=== PATIENT | male | born 1950 | race Caucasian/White ===

== ENCOUNTER → 2018-09-24 | Outpatient (CLI) | payer BC ==
--- NOTE | 2018-09-24 17:25 | PCVCIMAG ---
APPROVED REPORT Study performed: 09/24/2018 10:40:32 Exam: Stress Echocardiogram Indication: Dyspnea, Elevated coronary calcium score Patient Location: Echo lab Stress Nurse: Betty Santoro RN Room #: 2 Status: routine Ht: 5 ft 10 in HR: 53 bpm BP: 132/82 mmHg Rhythm: NSR Medical History Medical History: HTN, Hyperlipidemia Cardiac Risk Factors: FHX of CAD, HTN, Hyperlipidemia Previous Cardiac Procedures: none Exercise History: Physically active Procedure The patient underwent an Exercise Stress Test using the Vidya Protocol. Blood pressure, heart rate, and EKG were monitored. An Echocardiogram was performed by cotton program technician in four stages in quad fashion. At peak stress, four selected images were obtained and placed side by side with resting images for comparison. Stress Test Details Stress Test: Exercise stress testing was performed using a Vidya protocol. HR Resting HR: 53 bpmMax Heart Rate (APMHR): 153 bpm Max HR Achieved: 148 bpmTarget HR (85% APMHR): 130 bpm % of APMHR: 96 Recovery HR: 74 bpm HR response to stress: Normal HR response to stress BP Resting BP: 132/82 mmHg Max BP: 210/86 mmHg Recovery BP: 174/80 mmHg BP response to stress: Normal blood pressure response to stress. ECG Resting ECG: Sinus Rhythm Stress ECG: Sinus Rhythm ST Change: Non-ischemic Maximum ST Deviation: -0.9 mm Arrhythmia: Occ PACs, Rare PVCs Recovery ECG: Sinus Rhythm Recovery ST Change: Non-ischemic Recovery ST Deviation: -.075 mm Recovery Arrhythmia: rare PACs Clinical Reason for Termination: Maximal effort Stress Symptoms: fatigue Exercise duration: 9 min 38 sec Highest Stage Achieved: Stage 4: 4.2 mph at 16% grade. Exercise capacity: 12.1 METs Overall Exercise Capacity for Age: Good Angina Score: None No complications. Stress ECG Conclusion The patient exercised according to the VIDYA protocol for 9:38 mins; achieving a work level of 12.1 METS. The resting heart rate of 53 bpm giovanna to a maximum heart rate of 148 bpm. This value represent 96% of the maximal, age-predicted heart rate. The resting blood pressure of 132/82 mmHg, giovanna to a maximum blood pressure of 210/86 mmHg. The exercise test was stopped due to fatigue . Griffith Treadmill Score is 13.5 which is Low risk. Pre-Stress Echo The resting Echocardiogram showed normal left ventricular contractility with an estimated Ejection Fraction of about 55-60%. Normal wall motion in all segments on baseline images. Post-Stress Echo The stress Echocardiogram showed normal left ventricular contractility with an estimated Ejection Fraction of about 65-70%. Normal augmentation of wall motion in all segments on post stress images. Clinical No clinical or ECG evidence for ischemia. Conclusion Clinical Response: Non-ischemic Exercise Capacity: Superior Stress ECG Response: Non-ischemic Stress Echo Images: Non-ischemic No clinical, EKG or echocardiographic evidence for ischemia. No echocardiographic evidence for exercise induced ischemia. Normal stress echocardiogram with maximal exercise stress. Trace to mild aortic insuffeciency is seen. <Conclusion> No clinical, EKG or echocardiographic evidence for ischemia. No echocardiographic evidence for exercise induced ischemia. Normal stress echocardiogram with maximal exercise stress. Trace to mild aortic insuffeciency is seen.
== END | disposition home or self-care (01) ==
LOC: PCVCIMAG 10:13
PROVIDERS: ATTEND Internal Medicine Cardiovascular Disease
DX: R93.1 Abnormal findings on diagnostic imaging of heart and coronary circulation (principal); R06.00 Dyspnea, unspecified; E78.5 Hyperlipidemia, unspecified; I10 Essential (primary) hypertension; Z82.49 Family history of ischemic heart disease and other diseases of the circulatory system
CPT/HCPCS: 93325; 93351